=== PATIENT | male | born 1950 | race African-American/Black ===

== ENCOUNTER 2017-02-17 18:58 | Emergency (ER) | payer BC ==
[2012-05-25 10:09] VITALS: BMI 39.3
[2017-02-17 19:45] LABS: BASOPHILS 0.1 % (0-2); EOSINOPHILS 1.8 % (0-7); HEMATOCRIT 43.1 % (42.0-54.0); HEMOGLOBIN 13.9 g/dL (13.5-17.5); IMMATURE GRANULOCYTES 0.2 % (0-5); LYMPHOCYTES 26.4 % (15-50); MCH 30.5 pg (26.0-34.0); MCHC 32.3 g/dL (31.0-37.0); MCV 94.7 fL (80.0-100.0); MEAN PLATELET VOLUME 10.9 fL (7.4-10.4); MONOCYTES 9.1 % (2-11); NEUTROPHILS 62.4 % (40-80); PLATELET COUNT 155 10x3/uL (130-400); RBC 4.55 10x6/uL (4.20-6.10); RDW 14.7 % (11.5-14.5); WBC 8.3 10x3/uL (4.8-10.8)
[2017-02-17 20:09] LABS: ALBUMIN 3.3 g/dL (3.4-5.0); ANION GAP 12.9 mmol/L (8-16); BILIRUBIN - TOTAL 0.55 mg/dL (0.2-1.3); CALCIUM 8.9 mg/dL (8.5-10.1); CARBON DIOXIDE 29.3 mmol/L (21.0-32.0); CREATININE - SERUM 1.2 mg/dL (0.6-1.3); POTASSIUM - SERUM 4.2 mmol/L (3.5-5.1); PROTEIN - SERUM 6.8 g/dL (6.4-8.2)
[2017-02-17 20:31] LABS: APPEARANCE CLEAR (CLEAR); BILIRUBIN NEGATIVE (NEGATIVE); COLOR YELLOW (YELLOW); GLUCOSE NEGATIVE (NEGATIVE); KETONE NEGATIVE (NEGATIVE); LEUKOCYTE ESTERASE TRACE (NEGATIVE); NITRITE NEGATIVE (NEGATIVE); PROTEIN NEGATIVE (NEGATIVE); SPECIFIC GRAVITY 1.015 (1.005-1.020); UROBILINOGEN NORMAL (NORMAL)
[2017-02-17 20:32] LABS: BACTERIA NONE SEEN /hpf (NONE SEEN); EPITHELIAL CELLS NSEEN /hpf (0-5); RED CELLS - URINE NONE SEEN /hpf (0-5); WHITE CELLS - URINE 0-5 /hpf (0-5)
== END 2017-02-17 23:09 | disposition home or self-care (01) ==
LOC: D.ER 18:58
PROVIDERS: Emergency Medicine
DX: R10.9 Unspecified abdominal pain (principal); N39.0 Urinary tract infection, site not specified; I10 Essential (primary) hypertension; E11.9 Type 2 diabetes mellitus without complications; N40.0 Benign prostatic hyperplasia without lower urinary tract symptoms

== ENCOUNTER 2018-02-08 23:36 | Emergency (ER) | payer MEDICARE ==
[2012-05-25 10:09] VITALS: BMI 39.3
== END 2018-02-09 00:37 | disposition home or self-care (01) ==
LOC: D.ER 23:36
DX: S39.011A Strain of muscle, fascia and tendon of abdomen, initial encounter (principal); X50.9XXA Other and unspecified overexertion or strenuous movements or postures, initial encounter; Y93.89 Activity, other specified; Y92.89 Other specified places as the place of occurrence of the external cause; I10 Essential (primary) hypertension; E11.9 Type 2 diabetes mellitus without complications; F17.200 Nicotine dependence, unspecified, uncomplicated

== ENCOUNTER 2019-07-19 13:46 | Inpatient (IN) | payer MEDICARE, MEDICAID ==
[~2019-07-19] VITALS: Ht 182.9 cm; Wt 143.2 kg
[2019-07-19] MEDS ORDERED: LIPITOR20 MG PO (13:49)
[2019-07-19] MEDS ORDERED: COZAAR100 MG PO (13:50)
[2019-07-19] MEDS ORDERED: HYDROCHLOROTH12.5 M1 PO (13:50)
[2019-07-19] MEDS ORDERED: LEVEMIR IN100 UNITS/ SC (13:51)
[2019-07-19] MEDS ORDERED: NOVOLOG100 UNIT/1 SC (13:52)
[2019-07-19 14:56] LABS: BASOPHILS 0.3 % (0-2); EOSINOPHILS 0.3 % (0-7); HEMATOCRIT 43.3 % (42.0-54.0); HEMOGLOBIN 14.2 g/dL (13.5-17.5); IMMATURE GRANULOCYTES 0.3 % (0-5); LYMPHOCYTES 20.2 % (15-50); MCH 30.7 pg (26.0-34.0); MCHC 32.8 g/dL (31.0-37.0); MCV 93.5 fL (80.0-100.0); MEAN PLATELET VOLUME 10.5 fL (7.4-10.4); MONOCYTES 6.4 % (2-11); NEUTROPHILS 72.5 % (40-80); PLATELET COUNT 162 10x3/uL (130-400); RBC 4.63 10x6/uL (4.20-6.10); RDW 14.3 % (11.5-14.5); WBC 6.9 10x3/uL (4.8-10.8)
[2019-07-19 15:07] LABS: APTT 27.3 SECONDS (22.8-39.4); INR 1.05 (0.85-1.17); PROTIME 13.2 SECONDS (11.6-15.0)
[2019-07-19 15:16] LABS: ALBUMIN 3.3 g/dL (3.4-5.0); ALKALINE PHOSPHATASE 85 U/L (46-116); ALT (SGPT) 20 U/L (10-68); BILIRUBIN - TOTAL 0.53 mg/dL (0.2-1.3); CALC OSMOLALITY 277 mosm/kg (275-300); CALCIUM 8.6 mg/dL (8.5-10.1); CARBON DIOXIDE 30.8 mmol/L (21.0-32.0); CHLORIDE - SERUM 102 mmol/L (98-107); CREATININE - SERUM 1.4 mg/dL (0.6-1.3); POTASSIUM - SERUM 3.7 mmol/L (3.5-5.1); PROTEIN - SERUM 7.4 g/dL (6.4-8.2); SODIUM 139 mmol/L (136-145); UREA NITROGEN 15 mg/dL (7-18); eGFR NON AFRICAN AMERICAN 54 mL/min (90-120)
[2019-07-19 15:17] LABS: GLUCOSE 78 mg/dL (74-106)
[2019-07-19 15:28] LABS: CKMB 0.3 U/L (0.0-3.6); CREATINE KINASE 137 UL (21-232)
[2019-07-19 15:36] LABS: TROPONIN-I < 0.017 ng/mL (0.000-0.060)
[2019-07-19 15:54] LABS: APPEARANCE CLEAR (CLEAR); BILIRUBIN NEGATIVE (NEGATIVE); COLOR YELLOW (YELLOW); GLUCOSE NEGATIVE (NEGATIVE); KETONE NEGATIVE (NEGATIVE); NITRITE NEGATIVE (NEGATIVE); PROTEIN TRACE mg/dL (NEGATIVE); SPECIFIC GRAVITY 1.015 (1.005-1.020); UROBILINOGEN NORMAL (NORMAL)
--- NOTE | 2019-07-19 16:24 | NUR ---
I have reviewed this patient and I concur with the Shift Assessment completed by the Licensed Practical Nurse today this shift.
[2019-07-19 18:36] VITALS: BP 107/70; Ht 182.9 cm; Wt 143.2 kg
--- NOTE | 2019-07-19 19:20 | NUR ---
LYING IN BED. DROWSY. ORIENTED X4. SLOW TO RESPOND TO QUESTIONS. GEN WEAKNESS NOTED. RESP IRREG. SOB WITH MIN EXERTION. O2 @ 2L/NC. NONPROD COUGH NOTED. EDEMA NOTED TO BLE. NS @ 125 ML/HR INFUSING IN LT HAND WITHOUT DIFF. PT IS DIAPHORETIC BUT AFEBRILE AT THIS TIME. SR ELEVATED X2. CL IN REACH. NO DISTRESS.
[2019-07-19 20:10] VITALS: BP 99/49
[2019-07-19 21:21] LABS: CKMB 0.4 U/L (0.0-3.6); CREATINE KINASE 34 UL (21-232); TROPONIN-I < 0.017 ng/mL (0.000-0.060)
--- NOTE | 2019-07-19 22:00 | NUR ---
PULLED IV OUT. 22G INSERTED IN LT HAND X1 ATTEMPT. PT OSCAR WELL.
[2019-07-20 00:23] VITALS: BP 120/73
--- NOTE | 2019-07-20 00:44 | NUR ---
LYING ON RT SIDE IN BED WITH EYES CLOSED. RESP EVEN AND NONLABORED. O2 @ 2L/NC. SNORING NOTED. NO DISTRESS. CL IN REACH.
[2019-07-20 01:52] LABS: BASOPHILS 0.2 % (0-2); EOSINOPHILS 0 % (0-7); HEMATOCRIT 43.9 % (42.0-54.0); HEMOGLOBIN 14.2 g/dL (13.5-17.5); IMMATURE GRANULOCYTES 0.5 % (0-5); LYMPHOCYTES 10.3 % (15-50); MCH 30.5 pg (26.0-34.0); MCHC 32.3 g/dL (31.0-37.0); MCV 94.2 fL (80.0-100.0); MEAN PLATELET VOLUME 11.1 fL (7.4-10.4); MONOCYTES 1.1 % (2-11); NEUTROPHILS 87.9 % (40-80); PLATELET COUNT 163 10x3/uL (130-400); RBC 4.66 10x6/uL (4.20-6.10); RDW 14.1 % (11.5-14.5); WBC 5.7 10x3/uL (4.8-10.8)
[2019-07-20 02:14] LABS: ALBUMIN 2.8 g/dL (3.4-5.0); ALKALINE PHOSPHATASE 76 U/L (46-116); ALT (SGPT) 15 U/L (10-68); BILIRUBIN - TOTAL 0.39 mg/dL (0.2-1.3); CALC OSMOLALITY 292 mosm/kg (275-300); CARBON DIOXIDE 28.9 mmol/L (21.0-32.0); CHLORIDE - SERUM 102 mmol/L (98-107); CREATINE KINASE 145 UL (21-232); CREATININE - SERUM 1.6 mg/dL (0.6-1.3); POTASSIUM - SERUM 4.1 mmol/L (3.5-5.1); PROTEIN - SERUM 7.2 g/dL (6.4-8.2); SODIUM 138 mmol/L (136-145); TROPONIN-I < 0.017 ng/mL (0.000-0.060); UREA NITROGEN 17 mg/dL (7-18); eGFR NON AFRICAN AMERICAN 46 mL/min (90-120)
[2019-07-20 02:19] LABS: CALCIUM 8.4 mg/dL (8.5-10.1); GLUCOSE 366 mg/dL (74-106)
[2019-07-20 06:09] VITALS: BP 125/79
--- NOTE | 2019-07-20 07:37 | NUR ---
PT SITTING UP IN BED WATCHING TV, NO S/S OF DISRESS. IV LOCATED TO LEFT HAND RUNNING NS @ 125. CURRENTLY RCVING 2L VIA NC. ALERT AND ORIENTED, STATES HE IS FEELING MUCH BETTER TODAY AND DENIES NEEDS AT THIS TIME, WILL CONT TO MONITOR.
[2019-07-20 08:18] VITALS: BP 133/82
[2019-07-20 09:34] LABS: CKMB 1.2 U/L (0.0-3.6); CREATINE KINASE 144 UL (21-232); TROPONIN-I < 0.017 ng/mL (0.000-0.060)
--- NOTE | 2019-07-20 10:39 | NUR ---
WENT INTO PTS ROOM TO OBTAIN A URINE CULTURE VIA IN AND OUT CATH AND EXPLAINED TO HIM HIS LAST SPECIMEN WAS CONTAMINATED. EXPLAINED WHAT CAUSES THIS AND HOW TO OBTAIN A CLEAN URINE CATCH. PT REFUSED TO HAVE IN AND OUT STATING HE WOULD LIKE TO TRY 1 MORE TIME TO CATCH A CLEAN SPECIMEN. I AGREED BUT TOLD HIM IF IT WAS CONTAMINATED AGAIN WE WOULD HAVE TO CATH HIM AND HE SAID THAT WOULD BE OK.
--- NOTE | 2019-07-20 11:25 | NUR ---
FSBS 422, TREATED WITH 20UNITS OF REGULAR INSULIN PER ORDERS AND NOTIFIED BARRON MARTE.
[2019-07-20 13:33] VITALS: BP 105/66
[2019-07-20 16:14] VITALS: BP 100/67
[2019-07-20 19:00] VITALS: BP 141/90
--- NOTE | 2019-07-20 19:30 | NUR ---
SITTING UP IN CHAIR. ALERT AND ORIENTED X4. TALKATIVE WITH STAFF. TELEMETRY SHOWS SR WITH RATE OF 80. RESP NONLABORED. SOB WITH MIN EXERTION. O2 @ 2L/NC. PROD COUGH WITH GREEN SPUTUM REPORTED BUT NONE SEEN. EDEMA NOTED TO BLE. NS @ 125 ML/HR INFUSING IN LT HAND WITHOUT DIFF. DENIES PAIN. CL IN REACH. NO DISTRESS.
--- NOTE | 2019-07-20 21:48 | NUR ---
FSBS SHOWED 512. ORDERED GLUCOSE TO BE DRAWN BY LAB AND RESULTS WERE 400. SS INSULIN GIVEN AT THIS TIME. PT STILL SITTING UP IN CHAIR. NO DISTRESS. TALKING ON CELL PHONE. CL IN REACH.
[2019-07-21] VITALS: BP 137/83
--- NOTE | 2019-07-21 01:59 | NUR ---
LYING IN BED WATCHING TV AND PLAYING GAME ON CELL PHONE. NO DISTRESS. DENIES NEEDS. CL IN REACH.
[2019-07-21 04:00] VITALS: BP 126/72
[2019-07-21 04:45] LABS: BASOPHILS 0.2 % (0-2); EOSINOPHILS 0 % (0-7); HEMATOCRIT 39.1 % (42.0-54.0); HEMOGLOBIN 12.8 g/dL (13.5-17.5); IMMATURE GRANULOCYTES 0.6 % (0-5); MCH 30.7 pg (26.0-34.0); MCHC 32.7 g/dL (31.0-37.0); MCV 93.8 fL (80.0-100.0); MEAN PLATELET VOLUME 11.1 fL (7.4-10.4); MONOCYTES 4.9 % (2-11); NEUTROPHILS 87.3 % (40-80); PLATELET COUNT 170 10x3/uL (130-400); RBC 4.17 10x6/uL (4.20-6.10); RDW 14.1 % (11.5-14.5)
[2019-07-21 04:52] LABS: WBC 12.6 10x3/uL (4.8-10.8)
[2019-07-21 05:10] LABS: ANION GAP 12.8 mmol/L (8-16); CALCIUM 7.8 mg/dL (8.5-10.1); CARBON DIOXIDE 25.4 mmol/L (21.0-32.0); CREATININE - SERUM 1.3 mg/dL (0.6-1.3); MAGNESIUM - SERUM 2.1 mg/dL (1.8-2.4); POTASSIUM - SERUM 4.2 mmol/L (3.5-5.1); VANCOMYCIN - TROUGH 15.4 ug/mL (10.0-20.0)
--- NOTE | 2019-07-21 07:30 | NUR ---
PATIENT LAYING ON BACK. NO NEEDS AT THIS TIME. CL IN REACH WILL CONTINUE TO MONITOR
[2019-07-21 08:11] VITALS: BP 142/90
--- NOTE | 2019-07-21 10:32 | NUR ---
PATIENT WALKING WITH PT. SAYS HEADACHE IS BETTER. NO FURTHER NEEDS AT THIS TIME. CL IN REACH. WCTM
[2019-07-21] MEDS ORDERED: MUCINEX600 MG PO (11:17)
[2019-07-21] MEDS ORDERED: SULFAMETHOXAZOL1 TA2 PO (11:17)
[2019-07-21] MEDS ORDERED: TESSALON PERLE100 MG PO (11:17)
[2019-07-21] MEDS ORDERED: CIPRO500 MG PO (11:18)
[2019-07-21] MEDS ORDERED: PREDNISONE10 MG PO (11:19)
--- NOTE | 2019-07-21 11:49 | MORECARE ---
CASE MANAGEMENT DISCHARGE SUMMARY PATIENT: TRENTON DANIEL UNIT: [id number] ADM DATE: 07/19/19 AGE: 68 : 52 SEX: M ROOM/BED: D.2216 AUTHOR: STEVAN LOVE PHYSICIAN: REFERRING PHYSICIAN: RONN HOLT DO DATE OF SERVICE: 07/21/19 Discharge Plan Patient Name: TRENTON DANIEL Facility: [facility]:[place] : 1950 Planned Disposition: Home Anticipated Discharge Date: Discharge Date: Expected LOS: Initial Reviewer: [email or web address] Initial Review Date: 07/19/2019 Generated: 07/21/19 12:49 pm Comments DCP- Discharge Planning Updated by [email or web address]: Cecelia Cerna on 07/21/19 10:[address] Patient Name: TRENTON DANIEL Admission Status: ER Accout number: [id number] Admission Date: 07-19-2019 : 1950 Admission Diagnosis: Attending: RONN HOLT Current LOS: 2 Anticipated DC Date: Planned Disposition: Home Primary Insurance: MEDICARE A & B Discharge Planning Comments: CM met with patient to complete initial dc planning assessment. CM educated patient on the CM role and verbal consent given by patient to complete assessment. Patient lives at home with his girlfriend where he states he is independent at home. At discharge patient plans to return home and feels this is a safe discharge. CM discussed availability of home health, rehab services, and medical equipment. He has a glucometer at home, but denies any other dme needs. Patient denied known discharge needs at this time. CM will continue to follow and will assist as needed with dc plans/needs. Publicist: Cecelia Cerna DCPIA - Discharge Planning Initial Assessment Updated by [email or web address]: Cecelia Cerna on 07/21/19 11:45 am * Is the patient Alert and Oriented? Yes * How many steps to enter\exit or inside your home? 5/3 * PCP DR MAXWELL LARSON * Pharmacy [facility] * Preadmission Environment Home with Family * ADLs Independent * Equipment Glucometer * List name and contact numbers for known caregivers / representatives who currently or will assist patient after discharge: ADAM MERCER [phone] * Verbal permission to speak to the caregivers and representatives has been obtained from the patient. N/A * Community resources currently utilized None * Additional services required to return to the preadmission environment? No * Can the patient safely return to the preadmission environment? Yes * Has this patient been hospitalized within the prior 30 days at any hospital? No Patient Name: TRENTON DANIEL Page [phone] at 1149 All edits/amendments must be made on the electronic document DICTATION DATE: 07/21/19 1149 CAR WASHER: NAS 07/21/19 1149 RPT#: [id number] DC DATE: STATUS: ADM IN [facility] [address] [place] [address] END OF REPORT
--- NOTE | 2019-07-21 14:27 | NUR ---
DISCHARGE INSTRUCTIONS GIVEN. IV THERAPY DC'ED FROM LEFT HAND. IN ROOM. REFUSES WHEELCHAIR OUT. BROUGHT UP CONCEN OVER A BLISTER ON INSIDE OF RIGHT KNEE. PATIETN SAYS HE BURNT IT ON A SPACE HEATER. CONCERNS ABOUT NEEDING A COLONOSCOPY AND PROSTATE EXAM. WELL DRY LEGS. TOLD THEM THEY COULD TELL DR SINGER'S OFFICE WHEN THEY CALL FOR AN APPOINTMENT.
--- NOTE | 2019-07-24 08:14 | MORECARE ---
CASE MANAGEMENT DISCHARGE SUMMARY PATIENT: TRENTON DANIEL UNIT: [id number] ADM DATE: 07/19/19 AGE: 68 : 52 SEX: M ROOM/BED: D.2216 AUTHOR: STEVAN LOVE PHYSICIAN: REFERRING PHYSICIAN: RONN HOLT DO DATE OF SERVICE: 07/24/19 Discharge Plan Patient Name: TRENTON DANIEL Facility: [facility]:[place] : 1950 Planned Disposition: Home Anticipated Discharge Date: Discharge Date: 07/21/2019 Expected LOS: 0 Initial Reviewer: [email or web address] Initial Review Date: 07/19/2019 Generated: 07/24/19 9:14 am Comments DCP- Discharge Planning Updated by [email or web address]: Cecelia Cerna on 07/21/19 10:[address] Patient Name: TRENTON DANIEL Admission Status: ER Accout number: [id number] Admission Date: 07-19-2019 : 1950 Admission Diagnosis: Attending: RONN HOLT Current LOS: 2 Anticipated DC Date: Planned Disposition: Home Primary Insurance: MEDICARE A & B Discharge Planning Comments: CM met with patient to complete initial dc planning assessment. CM educated patient on the CM role and verbal consent given by patient to complete assessment. Patient lives at home with his girlfriend where he states he is independent at home. At discharge patient plans to return home and feels this is a safe discharge. CM discussed availability of home health, rehab services, and medical equipment. He has a glucometer at home, but denies any other dme needs. Patient denied known discharge needs at this time. CM will continue to follow and will assist as needed with dc plans/needs. Airconditioning Drafting Officer: Cecelia Cerna DCPIA - Discharge Planning Initial Assessment Updated by [email or web address]: Cecelia Cerna on 07/21/19 11:45 am * Is the patient Alert and Oriented? Yes * How many steps to enter\exit or inside your home? 5/3 * PCP DR MAXWELL LARSON * Pharmacy [facility] * Preadmission Environment Home with Family * ADLs Independent * Equipment Glucometer * List name and contact numbers for known caregivers / representatives who currently or will assist patient after discharge: ADAM MERCER [phone] * Verbal permission to speak to the caregivers and representatives has been obtained from the patient. N/A * Community resources currently utilized None * Additional services required to return to the preadmission environment? No * Can the patient safely return to the preadmission environment? Yes * Has this patient been hospitalized within the prior 30 days at any hospital? No Last DP export: 07/21/19 10:49 a Patient Name: TRENTON DANIEL Page [phone] at 0814 All edits/amendments must be made on the electronic document DICTATION DATE: 07/24/19813 BRAKE TESTER: NAS 07/24/19813 RPT#: [id number] DC DATE:07/21/19 STATUS: DIS IN [facility] [address] [place] [address] END OF REPORT
== END 2019-07-21 13:48 | disposition home or self-care (01) | DRG 194 ==
LOC: D.ER 13:46 → D.MS 15:26
PROVIDERS: Family Medicine; ADMIT Family Medicine; ATTEND Family Medicine
DX: J18.9 Pneumonia, unspecified organism (principal); F17.213 Nicotine dependence, cigarettes, with withdrawal; N17.9 Acute kidney failure, unspecified; I12.0 Hypertensive chronic kidney disease with stage 5 chronic kidney disease or end stage renal disease; I10 Essential (primary) hypertension; E78.5 Hyperlipidemia, unspecified; E11.65 Type 2 diabetes mellitus with hyperglycemia; N18.3 Chronic kidney disease, stage 3 (moderate)